=== PATIENT | male | born 1975 | race Caucasian/White ===

== ENCOUNTER 2020-09-24 05:46 | Day surgery (SDC) | payer BC, OTHER ==
[2020-09-17 16:38] LABS: BASOPHILS # (AUTO) 0.1 X10'3 (0-0.2); BASOPHILS % (AUTO) 0.7 % (0-1); EOSINOPHILS # (AUTO) 0.6 X10'3 (0-0.9); EOSINOPHILS % (AUTO) 6.8 % (0-6); LYMPHOCYTES # (AUTO) 2.2 X10'3 (1.1-4.8); LYMPHOCYTES % (AUTO) 26.7 % (21-51); MEAN CORPUSCULAR HEMOGLOBIN 30.3 PG (27.0-31.0); MEAN CORPUSCULAR HGB CONC 33.8 g/dL (33.0-36.5); MEAN CORPUSCULAR VOLUME 89.5 FL (78-98); MEAN PLATELET VOLUME 8.6 FL (7.4-10.4); MONOCYTES # (AUTO) 0.5 X10'3 (0-0.9); MONOCYTES % (AUTO) 6.2 % (2-12); NEUTROPHILS % (AUTO) 59.6 % (42-75); PRE OP HEMATOCRIT 44.5 % (42.0-52.0); PRE OP HEMOGLOBIN 15.1 g/dL (14.0-17.9); PRE OP PLATELET COUNT 248 X10'3 (140-440); RED BLOOD COUNT 4.97 X10'6 (4.70-6.10); RED CELL DISTRIBUTION WIDTH 13.4 % (11.5-14.5)
[2020-09-17 17:04] LABS: ALBUMIN 3.9 G/DL (3.4-5.0); ALBUMIN/GLOBULIN RATIO 1.2 (1.1-1.5); ALKALINE PHOSPHATASE 50 IU/L (46-116); BLOOD UREA NITROGEN 15 MG/DL (7-18); BUN/CREATININE RATIO 14.3 (5.4-32.0); CALCIUM 8.7 MG/DL (8.5-10.1); CHLORIDE 110 MMOL/L (99-107); CREATININE 1.05 MG/DL (0.60-1.10); PRE OP ALT 19 U/L (30-65); PRE OP ANION GAP 5 (8-16); PRE OP AST 13 U/L (10-37); PRE OP BILIRUB, TOTAL 0.7 MG/DL (0.0-1.0); PRE OP GLUCOSE 104 MG/DL (70-104); PRE OP POTASSIUM 3.9 MMOL/L (3.4-5.1); PRE OP SODIUM 144 MMOL/L (135-145); TOTAL CARBON DIOXIDE 28.7 MMOL/L (24-32); TOTAL PROTEIN 7.1 G/DL (6.4-8.2); eGFR 76 ML/MIN
[~2020-09-24] VITALS: Ht 193 cm; Wt 90.7 kg
[2020-09-24] VITALS (12 sets, daily range): BP systolic 123–133; BP diastolic 73–86
[~2020-09-24 05:46] MED LIST: CHOL10006 PO; FEXO-124 PO; FLUT16SP2 BOTHNARES; FLUT1BLS3 INH; MONT10TA21 PO; cefazolin/dext.iso 2gm/50ml 100 ML IV ONE; famotidine 20mg tablet PO ONE; ringers solution, lacted 1,000 ML IV SCH
[2020-09-24] MEDS ORDERED: LIDOcaine 1% (10mg/ml) 2ml vial ONE (06:13)
[2020-09-24] MEDS ORDERED: LIDOcaine 1% 30ml preserv. free vial ONE (06:39)
[2020-09-24] MEDS ORDERED: BUPIVAcaine/PF 2.5 mg/ml (0.25%) 30ml vial ONE (06:39)
[2020-09-24] MEDS ORDERED: fentaNYL/PF 50MCG/1 ML 2ML syringe ONE ×2 (07:18→07:58)
[2020-09-24] MEDS ORDERED: midazolam 2 mg/2 ml injection ONE (07:19)
[2020-09-24] MEDS ORDERED: propofol inj 20 ML IV ONE (07:21)
[2020-09-24] MEDS ORDERED: LIDOcaine 2% (20mg/ml) 5ml vial ONE (07:21)
[2020-09-24] MEDS ORDERED: rocuronium 10mg/ml inj IV ONE (07:21)
[2020-09-24] MEDS ORDERED: morphine 2 MG/ML inj. syringe IV PRN (07:30)
[2020-09-24] MEDS ORDERED: ringers solution, lacted 1,000 ML IV SCH (07:30)
[2020-09-24] MEDS ORDERED: meperidine/PF 25mg/ml syringe IV PRN ×2 (07:30)
[2020-09-24] MEDS ORDERED: ondansetron/PF 4mg/2ml inj IV PRN (07:30)
[2020-09-24] MEDS ORDERED: morphine 4 MG/ML inj SYRINge IV PRN (07:30)
[2020-09-24] MEDS ORDERED: proCHLORperazine 10 MG/2 ml inj IV PRN (07:30)
[2020-09-24] MEDS ORDERED: sevoflurane 250ml liquid IH ONE (07:46)
[2020-09-24] MEDS ORDERED: ePHEDrine 50MG/ML INJ. ONE (09:12)
[2020-09-24] MEDS ORDERED: dexamethasone sod phosphate 4mg/ml inj. ONE (09:12)
[2020-09-24] MEDS ORDERED: ondansetron/PF 4mg/2ml inj ONE (09:12)
[2020-09-24] MEDS ORDERED: neostigmine methylsulfate 1 MG/ML 10ml vial ONE (09:12)
[2020-09-24] MEDS ORDERED: glycopyrrolate 0.2mg/ml inj ONE (09:12)
--- NOTE | 2020-09-24 09:25 | NUR ---
Received from OR via BED, accompanied by Anesthesiologist DR EAST and report given by Anesthesiolgist. PATIENT WAKING UP, NO S/S OF PAIN, V/S WNL, SCD ON, 20G PIV LUE, BANDAIDS TO ABDOMEN CDI.
[2020-09-24] MEDS ORDERED: HYDROcodone/acetaminophen 10/325mg tab PO PRN (09:35)
[2020-09-24] MEDS ORDERED: HYDROcodone/acetaminophen 5mg/325mg tablet PO PRN (09:35)
[2020-09-24] MEDS: meperidine/PF 25mg/ml syringe IV PRN ×2 (09:58→10:13)
--- NOTE | 2020-09-24 11:55 | NUR ---
PATIENT A&OX4, PER PAIN, V/S WNL, SCD ON, 20G PIV LUE D/C, BANDAIDS TO ABDOMEN CDI. PATIENT HAS VOIDED OVER 200CC. I HAVE REVIEWED D/C INSTRUCTIONS WITH PATIENT AND THEY HAVE VERBALIZED UNDERSTANDING. PATIENT HAS SCRIPT FOR PAIN AND WAS D/C HOME WITH ALL BELONGINGS UNDER FAMILY/FRIEND CARE FOR TRANSPORT
== END 2020-09-24 11:45 | disposition home or self-care (01) ==
LOC: PAS 05:46
PROVIDERS: ATTEND Surgery
DX: K40.90 Unilateral inguinal hernia, without obstruction or gangrene, not specified as recurrent (principal); J45.909 Unspecified asthma, uncomplicated; Z20.828 Contact with and (suspected) exposure to other viral communicable diseases; Z79.899 Other long term (current) drug therapy; Z98.890 Other specified postprocedural states; Z87.442 Personal history of urinary calculi; Z86.14 Personal history of Methicillin resistant Staphylococcus aureus infection; Z80.9 Family history of malignant neoplasm, unspecified
CPT/HCPCS: 36415; 49650; 80053; 82948; 85025; 87635; 93005; C1781; J1100; J2001; J2175; J2250; J2405; J2704; J2710; J3010; J3490; S2900; A4215; A4618; J7120